=== PATIENT | male | born 1995 | race African-American/Black ===

== ENCOUNTER 2016-12-26 00:07 | Emergency (ER) | payer SELFPAY ==
--- NOTE | ~2016-12-26 | CR172 ---
[facility] A Service of [facility] RADIOLOGY TEXT RESULTS PATIENT: MARS MORRIS LOCATION: SED : 95 UNIT #: [id number] AGE: [address]: HAYDEN ROBERTSON SEX: M ORDER DR: [id number] [place] [id number] E MR#: [id number] Acc #: [id number] NAME: MARS MORRIS : 1995 SEX: M STUDY DATE/TIME: 12/26/2016 1:47 UNIT: SED ROOM: STUDY DESCRIPTION: CR Knee 3 Views Lt Attending Physician: Hayden Robertson Ordering Physician: Hayden Robertson MEDICAL IMAGING REPORT This report is preliminary unless electronic signature is present. EXAM Left knee series. INDICATION Left knee pain after an injury today. PROCEDURE Three views of the left knee. COMPARISON None FINDINGS No fracture, dislocation, or joint effusion. There is a 7.9 x 2.0 cm lucent lesion with a thin sclerotic margin along the posteromedial aspect of the distal femur. IMPRESSION 1. No acute findings. 2. Lucent lesion along the posterolateral aspect of the distal femur measures up to 7.9 cm. 3. 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 Consider MRI for further characterization on a nonemergent basis. Dictated by... Jagdeep Cobb M.D. THIS IS AN ELECTRONICALLY VERIFIED REPORT Jagdeep Cobb M.D. at 12/30/2016 7:22 AM EED/tmw [facility] A Service of [facility] RADIOLOGY TEXT RESULTS PATIENT: MARS MORRIS LOCATION: SED : 95 UNIT #: [id number] AGE: [address]: HAYDEN ROBERTSON SEX: M ORDER DR: TD: 12/26/2016 10:09 JOB #: [id number] MEDICAL IMAGING REPORT Page 1 of 1
[2016-12-26] MEDS ORDERED: NO MEDICATIONS (00:24)
== END 2016-12-26 02:30 | disposition home or self-care (01) ==
LOC: SED 00:07
DX: S80.02XA Contusion of left knee, initial encounter (principal); F17.200 Nicotine dependence, unspecified, uncomplicated; W01.0XXA Fall on same level from slipping, tripping and stumbling without subsequent striking against object, initial encounter; Y92.9 Unspecified place or not applicable
CPT/HCPCS: 29530; 73562; 99283